=== PATIENT | male | born 1945 | race Caucasian/White ===

== ENCOUNTER → 2017-10-10 | Outpatient (CLI) | payer MEDICARE, BC, OTHER ==
[~2017-10-10] MED LIST: ACTOS30 MG PO; AMARYL PO; ASPIR-LOW81 MG PO; FORTAMET1000 MG PO; LISINOPRIL10 MG PO; LORTAB 5/500 501 TAB PO; NORVASC 5MG5 MG/TAB PO; PRILOSEC 20MG20 MG PO; ZETIA10 MG PO; ZOCOR40 MG PO
== END ==
LOC: COL.VAS 09:26
DX: I08.8 Other rheumatic multiple valve diseases (principal); I10 Essential (primary) hypertension

== ENCOUNTER 2017-11-26 08:47 | Outpatient (CLI) | payer MEDICARE, BC, OTHER ==
[~2017-11-26] VITALS: Ht 167.6 cm; Wt 76.4 kg
[~2017-11-26 08:47] MED LIST changes: -LISINOPRIL10 MG PO; +PRINIVIL40 MG PO
[2017-11-26 09:38] VITALS: BP 179/82; PULSE 62; TEMP 98
[2017-11-26] MEDS ORDERED: COREG12.5 MG PO (09:42)
[2017-11-26] MEDS ORDERED: MOTRIN 800800 MG/TAB PO (09:47)
[2017-11-26] MEDS ORDERED: ALEVE 220MG220 MG PO (09:48)
[2017-11-26] MEDS ORDERED: ALKA-SELTZER HE1 TEF PO (09:48)
[2017-11-26] MEDS ORDERED: CEPHALEXIN500 M1 PO (10:32)
[2017-11-26 10:43] VITALS: BP 162/82; PULSE 72; TEMP 97.8
== END 2017-11-26 10:46 | disposition home or self-care (01) ==
LOC: COL.CAR 08:47
DX: R55 Syncope and collapse (principal); E11.9 Type 2 diabetes mellitus without complications; Z79.84 Long term (current) use of oral hypoglycemic drugs; Z68.27 Body mass index [BMI] 27.0-27.9, adult; E78.5 Hyperlipidemia, unspecified; I10 Essential (primary) hypertension